=== PATIENT | female | born 1945 | race Caucasian/White ===

== ENCOUNTER 2024-07-10 13:13 | Outpatient (AMB) | payer MEDICARE, SELFPAY ==
--- NOTE | 2024-07-10 13:29 | MHC.PC.OV ---
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 Intake Note: New patient visit Allergies Sulfa (Sulfonamide Antibiotics) Allergy (Unknown, Verified 07/10/24 13:30) itchy Tobacco use date assessed: 07/10/24 Fall risk assessment: No Falls in past year Last assessed Fall Risk: 07/10/24 Dental Screening Dental Screen Date: 07/10/24 Did you have a dental visit in the last 12 months?: Yes Did you have a dental problem in the last 6 months where you did not have access to dental care?: No Was dental information given to patient?: Patient has dentist HPI HPI Comments History of Present Illness Details 78 year old female with a past medical history of type 2 diabetes, hypertension, hyperlipidemia presenting for follow up Type 2: On metformin 1500mg daily, actos 30mg daily, glipizide. A1C is 7.5%. Has gained a lot of weight. CV: On atenolol, losartan, simvastatin. Denies chest pain, shortness of breath ROS CONSTITUTIONAL: Denies weight loss, fever and chills. HEENT: Denies changes in vision and hearing. RESPIRATORY: Denies SOB and cough. CV: Denies palpitations and CP GI: Denies abdominal pain, nausea, vomiting and diarrhea. : Denies dysuria and urinary frequency. MSK: Denies new myalgia and joint pain. SKIN: Denies rash and pruritus. NEUROLOGICAL: Denies headache PSYCHIATRIC: Denies recent changes in mood. PHYSICAL EXAM: GENERAL: Alert and oriented x 3. NAD EYES: EOMI. Anicteric. HENT: Moist mucous membranes. No scleral icterus. No cervical lymphadenopathy. LUNGS: Clear to auscultation bilaterally. CARDIOVASCULAR: Regular rate and rhythm. No murmur. No JVD. ABDOMEN: Soft, non-tender +bs EXTREMITIES: No edema. Non-tender. SKIN: No rashes or lesions. Warm. NEUROLOGIC: No focal neurological deficits. CN II-XII grossly intact PSYCHIATRIC: Cooperative. Appropriate mood and affect [facility] Medical History Cataract Surgical History Hx of cholecystectomy History of bilateral knee replacement Hx of tonsillectomy Family History Family/Other Substance abuse Mother Diabetes Father Brain cancer Social History Housing: House Alcohol intake: current Comment: once at [place] Patient Tobacco Use Status: Never used Tobacco e-Cigarette/Vaping Use: Never Used Second Hand Smoke Exposure: No Use of substances other than those prescribed or required for medical reasons: No service: No Current occupational status: retired Cognitive needs: No Hearing needs: No Vision needs: No Questionnaire PHQ-9 Over the last 2 weeks, how often have you been bothered by any of the following problems? 1. Little interest or pleasure in doing things: not at all 2. Feeling down, depressed, or hopeless: not at all 3. Trouble falling or staying asleep, or sleeping too much: not at all 4. Feeling tired or having little energy: not at all 5. Poor appetite or overeating: not at all 6. Feeling bad about yourself - or that you are a failure or have let yourself or your family down: not at all 7. Trouble concentrating on things, such as reading the newspaper or watching television: not at all 8. Moving or speaking so slowly that other people could have noticed. Or the opposite - being so fidgety or restless that you have been moving around a lot more than usual: not at all 9. Thoughts that you would be better off or of hurting yourself in some way: not at all Total score: 0 Depression Screening Interpretation: Negative Depression Screening Done: Yes 44489 - PHQ-9 Billing: Yes Source: Developed by Drs. Brenden Morales, Veronica Jensen, Ricardo Rios and colleagues, with an educational juan ramon from [employer]. Thrive Questionnaire Date Thrive assessed: 07/10/24 I am a: Patient What is your living situation today?: I have a steady place to live Within the past 12 months, did the food you bought not last and you didn't have the money to get more?: Often true Within the past 12 months, did you worry whether your food would run out before you got money to buy more?: Often true Do you have trouble paying for medicines?: No Do you have trouble getting transportation to medical appointments?: No Do you have trouble paying your heating and electricity bill?: No Do you have trouble taking care of your child, family member or friend?: No Do you have trouble with day-to-day activities such as bathing, preparing meals, shopping, managing finances, etc.?: No Are you currently unemployed and looking for a job?: No Are you interested in more education?: No Please select the resources that you would like help with: None Currently or been in a relationship where the following occur: I choose not to answer THRIVE Score: 2 AUDIT C Alcohol Use Questionnaire (AUDIT-C) 1. How often do you have a drink containing alcohol?: Never Total Score: 0 RORY-7 AMB Questionnaire RORY-7 Date RORY - 7 assessed: 07/10/24 Feeling nervous, anxious, or on edge: 0 = Not at all Not being able to stop or control worryin = Not at all Worrying too much about different things: 0 = Not at all Trouble relaxin = Not at all Being so restless that it is hard to sit still: 0 = Not at all Becoming easily annoyed or irritable: 0 = Not at all Feeling afraid as if something awful might happen: 0 = Not at all Total RORY-7 score (0-4 normal; 5-9 mild; 10-14 moderate; 15-21 severe): 0 Source: Developed by Drs. Brenden Morales, Veronica Jensen, Ricardo Rios and colleagues, with an educational juan ramon from [employer]. RORY-7 Assessment Billing RORY-7 Assessment Tool: RORY-7 Assessment 22692 Physical exam (Primary Care) BMI result Body Mass Index 43.1 Tobacco/Smoking Status: Tobacco use Status Tobacco use date assessed 07/10/24 07/10/24 13:38 Patient Tobacco Use Status Never used Tobacco 07/10/24 13:38 e-Cigarette/Vaping Use Never Used 07/10/24 13:38 PHQ-9: PHQ-9 Score PHQ-9: Total score 0 07/10/24 13:38 Depression Screening Interpretation: Negative Thrive Assessment: Date of Thrive Assessment Date Thrive assessed 07/10/24 07/10/24 13:38 Currently or been in a relationship where the following occur: I choose not to answer Results AMB Hemoglobin A1c AMB Hemoglobin A1c 7.5 % Last Edit by Destinee Walker CMA on 07/10/24 13:55 Coding Level of Care Code Est Pt Level 4 (84885) Diagnoses Type 2 diabetes mellitus with hyperglycemia, without long-term current use of insulin E11.65 Diabetes mellitus oysterman insulin use: without oysterman use Diabetes mellitus complication status: with hyperglycemia Primary hypertension I10 Hypertension type: primary hypertension Additional Codes RORY-7 Assessment Billing - RORY-7 Assessment Tool: RORY-7 Assessment 52781 ([id number]) PHQ-9 - 31010 - PHQ-9 Billing: Yes ([id number]) Assessment & Plan Assessment & Plan (1) Type 2 diabetes mellitus: Code(s): E11.9 - Type 2 diabetes mellitus without complications Category: Medical Qualifiers: Diabetes mellitus senior care insulin use: without senior care use Diabetes mellitus complication status: with hyperglycemia Qualified Code(s): E11.65 - Type 2 diabetes mellitus with hyperglycemia Plan: Close to controlled. Start mounjaro 2.5mg weekly Continue actos, metformin (2) Hypertension: Code(s): I10 - Essential (primary) hypertension Category: Medical Qualifiers: Hypertension type: primary hypertension Qualified Code(s): I10 - Essential (primary) hypertension Plan: well controlled Weight loos recommended Orders: Orders AMB Hemoglobin A1c Today E11.9 - Type 2 diabetes mellitus without complications Medications: New Mounjaro (tirzepatide) for 4 weeks 2.5 mg (0.5 mL) subcut QWEEK 2 mL 0RF NS E11.9 - Type 2 diabetes mellitus without complications, E66.9 - Obesity, unspecified, R80.9 - Proteinuria, unspecified pioglitazone 30 mg PO DAILY 90 tabs 3RF ondansetron 4 mg PO Q8H PRN 30 tabs 3RF nausea and vomiting fluticasone propionate 50 mcg/actuation (Flonase Allergy Relief) administer into each nostril 2 sprays intranasal DAILY 16 grams 3RF
[2024-07-10 13:35] VITALS: BMI 43.1
== END 2024-07-10 14:08 | disposition home or self-care (01) ==
PROVIDERS: PCP Internal Medicine; Visit Provider Internal Medicine
DX: E11.65 Type 2 diabetes mellitus with hyperglycemia (principal); I10 Essential (primary) hypertension; E11.9 Type 2 diabetes mellitus without complications

== ENCOUNTER → 2024-07-10 13:13 | Outpatient (BNVA) | payer MEDICARE, SELFPAY | PROVIDERS: PCP Internal Medicine; Visit Provider Internal Medicine | DX: E11.65 Type 2 diabetes mellitus with hyperglycemia (principal); I10 Essential (primary) hypertension; Z79.84 Long term (current) use of oral hypoglycemic drugs; Z79.899 Other long term (current) drug therapy | CPT/HCPCS: 83036; 96127; 99212 ==

== ENCOUNTER 2024-12-12 11:42 | Outpatient (AMB) | payer MEDICARE, OTHER, SELFPAY ==
--- NOTE | 2024-12-12 11:40 | MHC.PC.OV ---
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 Allergies Sulfa (Sulfonamide Antibiotics) Allergy (Unknown, Verified 12/12/24 11:41) itchy Medication List - Last Reconciled 12/12/24 by Marybel Howell MD atenolol 50 mg PO DAILY fluticasone propionate 50 mcg/actuation 2 sprays intranasal DAILY glipizide ER 10 mg PO DAILY losartan 25 mg PO DAILY metformin 500 mg PO BID Mounjaro (tirzepatide) 2.5 mg (0.5 mL) subcut QWEEK NS ondansetron 4 mg PO Q8H PRN pioglitazone 30 mg PO DAILY simvastatin 10 mg PO BEDTIME Tobacco use date assessed: 12/12/24 Fall risk assessment: No Falls in past year Last assessed Fall Risk: 12/12/24 Dental Screening Dental Screen Date: 12/12/24 Did you have a dental visit in the last 12 months?: Yes Did you have a dental problem in the last 6 months where you did not have access to dental care?: No Was dental information given to patient?: Patient has dentist (has appt tomorrow) HPI HPI Comments History of Present Illness Details 78 year old female with a past medical history of type 2 diabetes, hypertension, hyperlipidemia presenting for follow up Type 2: On metformin 1500mg daily-she decreased this to 500mg twice daily, actos 30mg daily-stopped, glipizide 10mg daily, mounjaro 2.5mg daily. A1C is 9%. Some interval weight loss on the mounjaro CV: On atenolol 50 (decrease to 25 today), losartan, simvastatin. HR is 40s today, bp well controlled. Denies chest pain, shortness of breath ROS CONSTITUTIONAL: Denies weight loss, fever and chills. HEENT: Denies changes in vision and hearing. RESPIRATORY: Denies SOB and cough. CV: Denies palpitations and CP GI: Denies abdominal pain, nausea, vomiting and diarrhea. : Denies dysuria and urinary frequency. MSK: Denies new myalgia and joint pain. SKIN: Denies rash and pruritus. NEUROLOGICAL: Denies headache PSYCHIATRIC: Denies recent changes in mood. PHYSICAL EXAM: GENERAL: Alert and oriented x 3. NAD EYES: EOMI. Anicteric. HENT: Moist mucous membranes. No scleral icterus. No cervical lymphadenopathy. LUNGS: Clear to auscultation bilaterally. CARDIOVASCULAR: Regular rate and rhythm. No murmur. No JVD. ABDOMEN: Soft, non-tender +bs EXTREMITIES: No edema. Non-tender. SKIN: No rashes or lesions. Warm. NEUROLOGIC: No focal neurological deficits. CN II-XII grossly intact PSYCHIATRIC: Cooperative. Appropriate mood and affect [facility] Medical History Cataract Surgical History Hx of cholecystectomy History of bilateral knee replacement Hx of tonsillectomy Family History Family/Other Substance abuse Mother Diabetes Father Brain cancer Social History Housing: House Alcohol intake: current Comment: once at [place] Patient Tobacco Use Status: Never used Tobacco e-Cigarette/Vaping Use: Never Used Second Hand Smoke Exposure: No service: No Current occupational status: retired Cognitive needs: No Hearing needs: No Vision needs: No Questionnaire Thrive Questionnaire Date Thrive assessed: 07/10/24 AUDIT C Alcohol Use Questionnaire (AUDIT-C) 1. How often do you have a drink containing alcohol?: Monthly or less (Birthdays or holidays) 2. How many drinks containing alcohol do you have on a typical day when you are drinking?: 1 or 2 3. How often do you have six or more drinks on one occasion?: Never Total Score: 1 RORY-7 AMB Questionnaire RORY-7 Date RORY - 7 assessed: 07/10/24 Source: Developed by Drs. Brenden Morales, Veronica Jensen, Ricardo Rios and colleagues, with an educational juan ramon from [employer]. Physical exam (Primary Care) Vital Signs: Last Vital Signs Temp 98.4 F 12/12/24 11:48 Pulse 48 L 12/12/24 11:48 Resp 14 12/12/24 11:48 BP 114/56 L 12/12/24 11:48 Pulse Ox 97 12/12/24 11:48 Oxygen Delivery Method Room Air 12/12/24 11:48 Tobacco/Smoking Status: Tobacco use Status Tobacco use date assessed 12/12/24 12/12/24 11:48 Patient Tobacco Use Status Never used Tobacco 12/12/24 11:54 e-Cigarette/Vaping Use Never Used 12/12/24 11:54 Thrive Assessment: Date of Thrive Assessment Date Thrive assessed 07/10/24 12/12/24 11:48 Results AMB Hemoglobin A1c AMB Hemoglobin A1c 9.0 % Last Edit by Destinee Walker CMA on 12/12/24 11:59 Results Reviewed Results Reviewed: Laboratory Last Values Hgb A1c (Clinic) 9.0 % (4.0-6.0) H 12/12/24 11:53 Coding Level of Care Code Est Pt Level 4 (63817) Diagnoses Type 2 diabetes mellitus with hyperglycemia, without long-term current use of insulin E11.65 Diabetes mellitus complication status: with hyperglycemia Diabetes mellitus longterm insulin use: without longterm use Primary hypertension I10 Hypertension type: primary hypertension Assessment & Plan Assessment & Plan (1) Type 2 diabetes mellitus: Code(s): E11.9 - Type 2 diabetes mellitus without complications Category: Medical Qualifiers: Diabetes mellitus complication status: with hyperglycemia Diabetes mellitus termite control service representative insulin use: without termite control service representative use Qualified Code(s): E11.65 - Type 2 diabetes mellitus with hyperglycemia (2) Hypertension: Code(s): I10 - Essential (primary) hypertension Category: Medical Qualifiers: Hypertension type: primary hypertension Qualified Code(s): I10 - Essential (primary) hypertension Plan Diabetes suboptimal control She decreased her metformin at home due to GI side effects.she will try to take 1500 instead of the 1000 daily She will increase glipizide to 20mg daily She will call when feels stable enough to increase mounjaro to 5mg Decrease atenolol to 25mg daily due to low HR Orders: Orders Lipid Panel 12/12/24 E11.65 - Type 2 diabetes mellitus with hyperglycemia, I10 - Essential (primary) hypertension, R80.9 - Proteinuria, unspecified AMB Hemoglobin A1c 12/12/24 E11.65 - Type 2 diabetes mellitus with hyperglycemia Hemoglobin A1c 12/12/24 - Type 2 diabetes mellitus with hyperglycemia, I10 - Essential (primary) hypertension, R80.9 - Proteinuria, unspecified Comprehensive Met. Panel 12/12/24 - Type 2 diabetes mellitus with hyperglycemia, I10 - Essential (primary) hypertension, R80.9 - Proteinuria, unspecified Complete Blood Count Auto Diff 12/12/24 - Type 2 diabetes mellitus with hyperglycemia, I10 - Essential (primary) hypertension, R80.9 - Proteinuria, unspecified Microalbumin, Random (w Creat) 12/12/24 - Type 2 diabetes mellitus with hyperglycemia, I10 - Essential (primary) hypertension, R80.9 - Proteinuria, unspecified Medications: New atenolol 25 mg PO DAILY 90 tabs 3RF Changed From metformin 1,000 mg (2 x 500 mg) PO BID 180 tabs 3RF To metformin 500 mg PO BID From glipizide ER 10 mg PO DAILY 90 tabs 3RF To glipizide ER 20 mg (2 x 10 mg) PO DAILY 180 tabs 3RF Discontinued pioglitazone Discontinued Reason: Doctor's Order 30 mg PO DAILY 90 tabs 3RF atenolol Discontinued Reason: Doctor's Order 50 mg PO DAILY 90 tabs 3RF
[2024-12-12 11:48] VITALS: BP 114/56; PULSE 48; RESP 14; TEMP 36.9; O2SAT 97
--- OUTSIDE RECORDS SUMMARY | 2024-12-12 13:21 | XMS_ITS | Data Portability ---
Author Organization [place] - [facility],, MARITA WALKER MD Address [address] [facility] [address] [place] [address] Care Team Providers Care Soda Jerker Name Role Phone KELSIE BORDEN Primary Care Provider Assessment No assessment recorded. Plan of Treatment Reminders Order Date Submit Date Provider Last Modified By Organization Details Last Modified Time Details Appointments None recorded. Lab cytology, Pap smear 2012 013 bola [facility], Cytopathology Service, [address] [place], [address], 3 07:29:19 Referral medical weight loss program referral - BMI 40.1 2012 013 JENNY Roman MD, [address] [place] [address], [place], [address], 3 14:34:30 Procedures None recorded. Surgeries None recorded. Imaging MAMMO, screening , digital, bilateral 2012 013 [facility] ([facility]), [address] [place], [address], 5 08:02:08 Medication Orders None recorded. Patient TargetsNo targets recorded. Patient Instructions Encounter Date Encounter Id Patient Instructions Last Modified By Organization Details Last Modified Time 05/22/2013 [id number] starting a weigh t loss plan: care instructions bola Not available 05/22/2013 10:31:07 learning about breast cancer screening bola Not available 05/22/2013 10:31:06 atrophic vaginit is: care instructions bola Not available 05/22/2013 10:31:07 She appears to b e doing well. She has been trying to lose weight but cannot, wishes a referral to weight management. She has a black lesion on her inner upper left thigh. She thinks it is new she has never noted it before, she is advised to see dermatology to have it removed very soon, she agrees to do this. She appears to have a sinusitis, she is going to go to a walk in clinic as her PCP cancelled her appointment on Wednesday. She is advised to get 1500 mg of calcium daily into her diet and supplements combined. There is a health benefit with adequate vitamin D supplementation to at least 400 units daily, daily aerobic exercise of 30 minutes, and stress reduction. Monthly self breast exam was taught, and stressed, and is advised to call if she discovers any new mass in the breast. Seat belt use for herself and passengers are advised. There are significant health benefits of becoming and remainig fit, with an optimal BMI. There is a potential reduction in chronic discomfort, diminished risks of hypertension, diabetes, and heart disease with the proper weight management. With a recommended BMI there can be improved mobility as she ages. Strategies to reach and maintain her target weight were discussed in detail. [email or web address] Not available 05/22/2013 09:57:26 Reason for Referral Medical Weight Loss Program Referral for Obesity BMI 40.1 Referring Physician: Marita Walker, Gynecology, Encounter Date: 05/22/2013 Results Created Date Observation Date Name Description Value Unit Range Abnormal Flag Note LastModifiedBy Organization Detail LastModifiedTime 05/22/20 13 05/22/2013 pap1c ase [id number] thinp rep Pap, image d: negat sascha for squam ous intra epith elial shruthi limon and vibha esposito . rebec ca gan crystal, CT(as cp) (case elect jose alfredo russo naheed d 05 29 2013) adequ acy: satis facto ry. endoc ervic al trans forma tion zone compo nent prese nt. sourc e: thinp rep Pap, cervi benoit, image d clini benoit infor matio n: HPV if diagn osis of ASCUS . menop ause * cytop athol ogy servi lisa provi ded by [facility] at the above addre ss. Not Available [facility], Cytopathology Service [address] [place], [address], 05/29/2013 09:41:20 05/11/20 13 07/01/2012 imagi ng/di agnos tic resul t No observ ation record ed. BARCODE Not Available 2012 13:56:16 05/11/20 13 07/01/2012 imagi ng/di agnos tic resul t No observ ation record ed. BARCODE Not Available 2012 14:18:45 08/21/19 17 08/21/2016 MAMMO , scree sawyer, digit al, bilat eral No observ ation record ed. [facility] ([facility]) [address] [place], [address], 08/25/2016 12:55:17 09/11/19 18 09/09/2017 MAMMO , scree sawyer, digit al, bilat eral No observ ation record ed. [email or web address] Not Available 2017 10:08:58 10/24/19 19 10/21/2018 MAMMO , scree sawyer, digit al, bilat eral No observ ation record ed. [email or web address] Not Available 2018 08:29:00 02/13/20 20 02/08/2020 MAMMO , scree sawyer, digit al, bilat eral No observ ation record ed. [email or web address] Not Available 2019 15:17:29 Result Notes None recorded. Problems Name Problem SNOMED Code Status Onset Date Resolution Date Notes Provider Name and Address Organization Details Recorded Time Disorder of lipid metabolism 566910586 Active DARRELL Ramirez in [facility], 3 13:37:59 Diabetes mellitus 56961544 DARRELL Moran in [facility], 3 13:37:59 Benign essential hypertension 3129150 DARRELL Moran in [facility], 3 13:37:59 Osteoarthritis of knee 047681821 DARRELL Moran in [facility], 3 13:37:59 Allergic rhinitis 31124341 Active Amara Valle antione DARRELL - [facility], 3 13:37:59 Obesity 133791457 Active Marita Walker MD [address], [place], [address], [place] [facility], 3 09:57:26 Melanocytic nevus of skin of thigh 464534759 Active Marita Walker MD [address], [place], [address], [place] [facility], 3 09:17:18 Notes:Mammo @ [facility] on 07/01/12 =Negative Problem Notes None recorded. Procedures Surgical History Date Name Laterality Status Provider Name and Address Organization Details Recorded Time 06/28/19 03 Other completed Luh Lam [place] - [facility], 05/22/2013 09:28:30 06/28/18 84 Cholecystectomy completed Luh Lam [place] - [facility], 05/22/2013 09:28:30 06/28/18 81 Caesarean Section completed Luh Lam [place] - [facility], 05/22/2013 09:28:30 06/28/18 55 Tonsillectomy completed Luh Lam [place] - [facility], 05/22/2013 09:28:30 Imaging Results None recorded. Procedure Notes None recorded. Medical Equipment None Reported. Allergies Allergen ID Allergen Name Allergen Category Reaction Reaction Severity Criticality Documentation Date Start Date Code Code System Note Provider Name and Address Organization Details Recorded Time 36717 Substance with sulfonami de structure and antibacte rial mechanism of action (substanc e) medicatio n Not available Not available Not available 05/11/2013 [id number] SNOMED Amara Valle antione DARRELL - [facility], 3 13:37:59 Medications Name Sig Start Date Stop Date Status Note LastModified by Organization Details LastModified Time metformin 500 mg tablet active Not Available Not Available Not Available prednisolone acetate 1 % eye drops,suspension active Not Available Not Avail able Not Available simvastatin 20 mg tablet active Not Available Not Available Not Available hydrochlorothiazide 25 mg tablet active Not Available Not Available Not Available atenolol 50 mg tablet active Not Available Not Available Not Available amoxicillin 875 mg-potassium clavulanate 125 mg tablet active Not Available Not Available Not Available Vitals Date Recorded Body height Body weight Body mass index (BMI) Heart rate Body temperature Systolic blood pressure Diastolic blood pressure Provider Name and Address Organization Details Last Updated DateTime 3 157.48 cm 67963.7 2903 g 40.1 kg/m2 70 /min 98.2 [degF] 154 mm[Hg] 75 mm[Hg] Luh Lam [place] - [facility], 3 09:28:30 Social History Question Answer Notes LastModified by Organizat ion Details LastModified Time Tobacco Smoking Status Never Smoker Not Available [facility] 04/30/2020 03:19:39 What Is Your Level Of Caffeine Consumption? Moderate [id number] Information not available 04/30/2020 What Type Of Diet Are You Following? DIABETIC [id number] Information not available 04/30/2020 Which Illicit Or Recreational Drugs Have You Used? No [id number] Information not available 04/30/2020 Education Post Graduate Information not available 05/22/2013 Marital Status Informatio n not available 05/22/2013 Are You Sexually Active? No [id number] Information not available 04/30/2020 How Much Tobacco Do You Smoke? No [id number] Information not available 04/30/2020 General Stress Level Low Information not available 05/22/2013 Sex: Unknown Functional Status Question Answer Note LastModified by Organizat ion Details LastModified Time What is your level of alcohol consumption? 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 Occasional [id number] Information not available 04/30/2020 Mental Status None recorded. Family History Relationship Description Onset Age of this Age Resolved Age Notes LastModified by Organization Details LastModified Time Mother Diabetes mellitus 71 kidney failur e [email or web address] Not available 05/22/2013 09:16:56 Father Astrocytoma of brain 71 [email or web address] Not available 2012 13:43:58 Unspecified Relation Malignant neoplastic disease [email or web address] Not available 2012 09:28:30 Unspecified Relation Malignant tumor of colon [email or web address] Not available 2012 09:28:30 Medical History Condition Response Anesthesia complications N High Blood Pressure Y Depression N Lung Disease N Defects or Inherited Disease N History of Ovarian Cancer N BRCA testing in past N Anxiety Disorder N Arthritis Y Infertility N Endometriosis N History of Cancer N Kidney or Bladder Problems N Thyroid Problems N GI Problems N Anemia N History of Breast Cancer N Psychiatric Illness N Diabetes Y Headaches or Migraines N Asthma N Hepatitis N Heart Disease N Hypertension Y Gynecological History Statement/Question Response Menses Monthly N If Post Menopausal, Age at Menopause 53 Age at First Child 34 Obstetrics History GPAL:G 1 P 1 0 0 1 Type Value Full Term 1 Living 1 Total 1 Immunizations Vaccine Type Date Status Note Provider Nam e and Address Organization Details Recorded Time Tdap 10/27/2011 allan talbot [place] - [facility], 05/22/2013 09:28:30 Past Encounters Encounter ID Performer Location Encounter Start Date Encounter Closed Date Diagnosis/Indication Diagnosis SNOMED-CT Code Diagnosis ICD10 Code Diagnosis Note [id number] MD MARITA Wilkerson MD [address] [place] [id number] 05/22/2013 09:09:17 05/22/2013 12:50:48 Screening for malignant neoplasm of cervix 142401173 Screening mammography 85676116 Obesity 913619217 Health Concerns Section Related Observation LastModified by Organization Detai ls LastModified Time None Recorded Concern Status LastModified by Organization Details LastModified Time None Recorded Advance Directives Directive None Recorded Payers Insurance Date Sequence Insurance Name Policy Number Policy Daniels Covered Member ID Daniels Member ID Guarantor Name 02/10/2014 1 MEDICARE B-[place]: [facility] [employer] Vivienne Darnell [id number] Katerina [id number] DEANA Darnell 02/10/2014 2 [facility] - MEDICARE EXTENSION (INDEMNITY) [id number] Vivienne Darnell [id number] Vivienne Mann OBGyn Episode No OBEpisode recorded.
== END 2024-12-12 12:08 | disposition home or self-care (01) ==
PROVIDERS: PCP Internal Medicine; Visit Provider Internal Medicine
DX: E11.65 Type 2 diabetes mellitus with hyperglycemia (principal); I10 Essential (primary) hypertension

== ENCOUNTER → 2024-12-12 11:42 | Outpatient (BNVA) | payer MEDICARE, OTHER, SELFPAY | PROVIDERS: PCP Internal Medicine; Visit Provider Internal Medicine | DX: E11.65 Type 2 diabetes mellitus with hyperglycemia (principal); I10 Essential (primary) hypertension; Z79.84 Long term (current) use of oral hypoglycemic drugs | CPT/HCPCS: 83036; 99212 ==

== ENCOUNTER 2025-03-20 10:31 | Outpatient (AMB) | payer MEDICARE, OTHER, SELFPAY ==
--- NOTE | 2025-03-20 10:34 | MHC.PC.OV ---
Vital Signs 03/20/25 10:37 03/20/25 10:51 Height 4 ft 11.92 in Weight 211 lb 2 oz BMI 41.3 BP 148/84 H 134/84 Blood Pressure Location Rt brachial Rt brachial Position Sitting Sitting Respiration 14 Pulse 70 Pulse Source Pulse Oximeter Pulse Oximetry (%) 98 Oxygen Delivery Method Room Air Intake Visit Reasons: DM Intake Note: Diabetes follow up. Had been out or Pioglitazone for two weeks. 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 A1C is 7.5% from 9%. Frustrated that she has not lost more weight on the mounjaro. We discussed that she was supposed to stop the actos not the glipizide in case this was hindering weight loss. Today will have her increase her mounjaro to 5mg, stop the actos, decrease metformin to 1000mg daily and restart glipizide at 10mg daily. CV: On atenolol 25mg (decreased last visit), losartan, simvastatin. BP 134/84 Denies chest pain, shortness of breath ROS CONSTITUTIONAL: Denies weight loss, fever and chills. HEENT: Denies changes in vision and hearing. RESPIRATORY: Denies SOB and cough. CV: Denies palpitations and CP GI: Denies abdominal pain, nausea, vomiting and diarrhea. : Denies dysuria and urinary frequency. MSK: Denies new myalgia and joint pain. SKIN: Denies rash and pruritus. NEUROLOGICAL: Denies headache PSYCHIATRIC: Denies recent changes in mood. PHYSICAL EXAM: GENERAL: Alert and oriented x 3. NAD EYES: EOMI. Anicteric. HENT: Moist mucous membranes. No scleral icterus. No cervical lymphadenopathy. LUNGS: Clear to auscultation bilaterally. CARDIOVASCULAR: Regular rate and rhythm. No murmur. No JVD. ABDOMEN: Soft, non-tender +bs EXTREMITIES: No edema. Non-tender. SKIN: No rashes or lesions. Warm. NEUROLOGIC: No focal neurological deficits. CN II-XII grossly intact PSYCHIATRIC: Cooperative. Appropriate mood and affect [facility] Medical History Cataract Surgical History Hx of cholecystectomy History of bilateral knee replacement Hx of tonsillectomy Family History Family/Other Substance abuse Mother Diabetes Father Brain cancer Social History Housing: House Alcohol intake: current Comment: once at [place] Patient Tobacco Use Status: Never used Tobacco e-Cigarette/Vaping Use: Never Used Second Hand Smoke Exposure: No service: No Current occupational status: retired Cognitive needs: No Hearing needs: No Vision needs: No Questionnaire Thrive Questionnaire Date Thrive assessed: 07/10/24 I am a: Patient What is your living situation today?: I have a steady place to live Within the past 12 months, did the food you bought not last and you didn't have the money to get more?: Often true Within the past 12 months, did you worry whether your food would run out before you got money to buy more?: Often true Do you have trouble paying for medicines?: No Do you have trouble getting transportation to medical appointments?: No Do you have trouble paying your heating and electricity bill?: No Do you have trouble taking care of your child, family member or friend?: No Do you have trouble with day-to-day activities such as bathing, preparing meals, shopping, managing finances, etc.?: No Are you currently unemployed and looking for a job?: No Are you interested in more education?: No Please select the resources that you would like help with: None Currently or been in a relationship where the following occur: I choose not to answer THRIVE Score: 2 RORY-7 AMB Questionnaire RORY-7 Date RORY - 7 assessed: 07/10/24 Source: Developed by Veronica Osei Mikey, Ricardo Rios and colleagues, with an educational juan ramon from [employer]. Physical exam (Primary Care) Vital Signs: Last Vital Signs Pulse 70 03/20/25 10:37 Resp 14 03/20/25 10:37 BP 148/84 H 03/20/25 10:37 Pulse Ox 98 03/20/25 10:37 Oxygen Delivery Method Room Air 03/20/25 10:37 BMI result Body Mass Index 41.3 Tobacco/Smoking Status: Tobacco use Status Tobacco use date assessed 03/20/25 03/20/25 10:40 Patient Tobacco Use Status Never used Tobacco 03/20/25 10:40 e-Cigarette/Vaping Use Never Used 03/20/25 10:40 Thrive Assessment: Date of Thrive Assessment Date Thrive assessed 07/10/24 03/20/25 10:40 Currently or been in a relationship where the following occur: I choose not to answer Results AMB Hemoglobin A1c AMB Hemoglobin A1c 7.5 % Last Edit by Destinee Walker CMA on 03/20/25 10:47 Coding Level of Care Code Est Pt Level 4 (62160) Diagnoses Type 2 diabetes mellitus with hyperglycemia, without long-term current use of insulin E11.65 Diabetes mellitus shelter insulin use: without shelter use Diabetes mellitus complication status: with hyperglycemia Primary hypertension I10 Hypertension type: primary hypertension Class 3 severe obesity with serious comorbidity and body mass index (BMI) of 40.0 to 44.9 in adult, unspecified obesity type E66.813; Z68.41 Obesity type: unspecified obesity type Obesity classification: adult class 3 (BMI >= 40) Serious obesity comorbidity presence: with serious comorbidity Body mass index: BMI 40.0-44.9 Assessment & Plan Assessment & Plan (1) Type 2 diabetes mellitus: Code(s): E11.9 - Type 2 diabetes mellitus without complications Category: Medical Qualifiers: Diabetes mellitus shelter insulin use: without termite exterminator use Diabetes mellitus complication status: with hyperglycemia Qualified Code(s): E11.65 - Type 2 diabetes mellitus with hyperglycemia (2) Hypertension: Code(s): I10 - Essential (primary) hypertension Category: Medical Qualifiers: Hypertension type: primary hypertension Qualified Code(s): I10 - Essential (primary) hypertension (3) Obesity: Code(s): E66.9 - Obesity, unspecified Category: Medical Qualifiers: Obesity type: unspecified obesity type Obesity classification: adult class 3 (BMI >= 40) Serious obesity comorbidity presence: with serious comorbidity Body mass index: BMI 40.0-44.9 Qualified Code(s): E66.813 - Obesity, class 3; Z68.41 - Body mass index [BMI] 40.0-44.9, adult Plan 79 year old female for follow up DM-reviewed new medication regimen-see HPI Discussed improved A1C. HTN-adequately controlled on medications for age Orders: Orders AMB Hemoglobin A1c Today E11.65 - Type 2 diabetes mellitus with hyperglycemia Medications: New simvastatin 10 mg PO BEDTIME 90 tabs 3RF Mounjaro (tirzepatide) 5 mg (0.5 mL) subcut QWEEK 6 mL 3RF NS E11.65 - Type 2 diabetes mellitus with hyperglycemia Changed From glipizide ER 20 mg (2 x 10 mg) PO DAILY 180 tabs 3RF To glipizide ER 10 mg PO DAILY 90 tabs 1RF Refilled losartan 25 mg PO DAILY 90 tabs 3RF Discontinued Mounjaro (tirzepatide) Discontinued Reason: Doctor's Order 2.5 mg (0.5 mL) subcut QWEEK 6 mL 3RF NS E11.9 - Type 2 diabetes mellitus without complications, E66.9 - Obesity, unspecified, R80.9 - Proteinuria, unspecified
[2025-03-20 10:37] VITALS: BP 148/84; PULSE 70; RESP 14; O2SAT 98; BMI 41.3
[2025-03-20 10:51] VITALS: BP 134/84
== END 2025-03-20 11:03 | disposition home or self-care (01) ==
LOC: HO.HMCFM 10:31
PROVIDERS: PCP Internal Medicine; Visit Provider Internal Medicine
DX: E11.65 Type 2 diabetes mellitus with hyperglycemia (principal); I10 Essential (primary) hypertension; E66.813 Obesity, class 3; Z68.41 Body mass index [BMI] 40.0-44.9, adult

== ENCOUNTER → 2025-03-20 10:31 | Outpatient (BNVA) | payer MEDICARE, OTHER, SELFPAY | PROVIDERS: PCP Internal Medicine; Visit Provider Internal Medicine | DX: E11.65 Type 2 diabetes mellitus with hyperglycemia (principal); I10 Essential (primary) hypertension; E66.813 Obesity, class 3; Z68.41 Body mass index [BMI] 40.0-44.9, adult; Z79.84 Long term (current) use of oral hypoglycemic drugs; Z79.85 Long-term (current) use of injectable non-insulin antidiabetic drugs; Z79.899 Other long term (current) drug therapy | CPT/HCPCS: 83036; 99212 ==